=== PATIENT | female | born 1975 | race Hispanic/Latino ===

== ENCOUNTER 2018-04-11 06:58 | Inpatient (IN) | payer BC ==
[2018-04-11] MEDS ORDERED: ASPIRIN PO ONE (07:14)
[2018-04-11] MEDS ORDERED: ASPIRIN ONE (07:15)
[2018-04-11 07:54] LABS: Basophils # (Auto) 0.1 K/mm3 (0.0-0.1); Eosinophils # (Auto) 0.2 K/mm3 (0.0-0.4); Eosinophils % (Auto) 2.2 % (0.0-4.3); Hematocrit 41.9 % (30.3-42.9); Hemoglobin 14.2 gm/dl (10.1-14.3); Lymphocytes # (Auto) 2.6 K/mm3 (1.2-5.4); Lymphocytes % (Auto) 27.1 % (13.4-35.0); Mean Corpuscular HGB Conc 34 % (30-34); Mean Corpuscular Hemoglobin 29 pg (28-32); Mean Corpuscular Volume 86 fl (79-97); Monocytes # (Auto) 0.8 K/mm3 (0.0-0.8); Monocytes % (Auto) 7.9 % (0.0-7.3); Platelet Count 272 K/mm3 (140-440); Red Blood Count 4.89 M/mm3 (3.65-5.03); Red Cell Distribution Width 14.3 % (13.2-15.2)
[2018-04-11 08:08] LABS: BUN/Creatinine Ratio 21; Blood Urea Nitrogen 15 mg/dL (7-17); Hemolysis Index 14
--- NOTE | 2018-04-11 18:50 | XRay Report ---
FINAL REPORT PROCEDURE: XR CHEST 1V AP TECHNIQUE: Chest radiograph anteroposterior view. CPT 51593 HISTORY: chest pain COMPARISON: No prior studies are available for comparison. FINDINGS: Heart: Normal. Mediastinum/Vessels: Normal. Lungs/Pleural space: Normal. Bony thorax: No acute osseous abnormality. Life support devices: None. IMPRESSION: Negative exam..
[2018-04-11] MEDS ORDERED: ZOFRAN IV ONE ×2 (18:54→21:47)
[2018-04-11] MEDS ORDERED: SUBLIMAZE IV ONE ×2 (18:54→21:48)
[2018-04-11] MEDS ORDERED: BABY ASPIRIN PO ONE (18:55)
[2018-04-11] MEDS ORDERED: NORMODYNE IV ONE (18:55)
--- NOTE | 2018-04-11 18:55 | Emergency Department Report ---
HPI - General Chief Complaint: Chest Pain Time Seen by Provider: 04/11/18 16:15 - HPI HPI: The patient is a 42-year-old female with a history of morbid obesity, poorly controlled hypertension, and who presents for evaluation of chest pain and dyspnea. The patient reports chest pain on and off for the past week, midsternal, pressure-like in quality, constant and currently severe 10/10 in severity, radiating to the back. She also reports associated intermittent dyspnea currently resolved. She states that she has been compliant with antihypertensive regimen although blood pressure has been elevated at home as well. The patient denies trauma to the chest or back, fever, chills, cough, syncope, hemoptysis, unilateral leg swelling, oral contraceptive use, recent immobilization, history of DVT or PE, hx of recent cancer. ED Past Medical Hx - Past Medical History Previous Medical History?: Yes Hx Hypertension: Yes Additional medical history: heel spurs - Surgical History Past Surgical History?: Yes Hx Cholecystectomy: Yes Additional Surgical History: x 3. face surgery/reconstruction x 3 from [facility] - Social History Smoking Status: Never Smoker Substance Use Type: None - Medications Home Medications: Home Medications Medication Instructions Recorded Confirmed Last Taken Type Pantoprazole [Protonix TAB] 20 mg PO BID #60 tablet. 09/09/16 Unknown Rx Simvastatin [Zocor TAB] 10 mg PO QHS #30 tablet 09/09/16 Unknown Rx Hydrochlorothiazide [HCTZ] 25 mg PO DAILY #30 tablet 09/10/16 Unknown Rx Verapamil [Calan] 80 mg PO TID #90 tablet 09/10/16 Unknown Rx traMADol [Ultram] 50 mg PO Q6HR PRN #10 tablet 09/10/16 Unknown Rx ED Review of Systems ROS: Stated complaint: CP; SOB Other details as noted in HPI Constitutional: denies: fever ENT: denies: throat or neck pain Respiratory: denies: cough reports shortness of breath Cardiovascular: reports chest pain Endocrine: denies unexplained weight loss or gain Gastrointestinal: denies: abdominal pain, nausea Genitourinary: denies: dysuria Musculoskeletal: denies: leg swelling Skin: denies: rash Neurological: denies: headache Hematological/Lymphatic: denies: easy bleeding or easy bruising Psych: denies sadness or hopelessness Physical Exam - Physical Exam Vital Signs: Vital Signs 04/11/18 04/11/18 07:11 13:29 Temperature 98.5 F 98.4 F Pulse Rate 80 84 Respiratory 18 16 Rate Blood Pressure 185/105 181/98 O2 Sat by Pulse 98 99 Oximetry Physical Exam: General: well-nourished, well-developed, no acute distress, patient is morbidly obese Head: Normocephalic, atraumatic Eyes: normal sclera ENT: Mucous membranes are pink and moist Neck: trachea midline, neck supple, No neck stiffness, no cervical adenopathy Respiratory: Breath sounds equal bilaterally, no wheezing, rales, or rhonchi Cardio: S1 and S2 present, no murmurs, rubs, gallops, capillary refill is brisk Abdomen: Normoactive bowel sounds, soft abdomen, no rigidity, no guarding or rebound tenderness Musc: No pitting edema Skin: No rash Neuro: no facial drooping, normal speech Psych: Normal affect ED Course Vital Signs 04/11/18 04/11/18 07:11 13:29 Temperature 98.5 F 98.4 F Pulse Rate 80 84 Respiratory 18 16 Rate Blood Pressure 185/105 181/98 O2 Sat by Pulse 98 99 Oximetry ED Medical Decision Making - Lab Data Result diagrams: 04/11/18 07:28 04/11/18 07:28 - Medical Decision Making The patient was seen and examined by myself. The patient is placed on a monitoring and evaluation advisor and continuous pulse ox. On initial evaluation, the patient was found to be in no distress. EKG was negative for findings suggestive of acute cardiac infarct. The patient is given an aspirin and a nitroglycerin tablet. Labs and imaging are obtained. The patient is given IV fentanyl for her pain. Chest x-ray is negative for pneumothorax, focal consolidation, pulmonary vascular congestion, pleural effusion, or other obvious acute cardiopulmonary disease process. Lab results were non-revealing including negative troponin, WBC, hemoglobin, hematocrit, electrolytes, renal function. The patient was reevaluated and reported that their symptoms were improved. CT angiogram of the chest was obtained and was negative for pulmonary embolism or aortic dissection. As the patient has chest pain and risk factors for development of acute coronary event, and has not received a stress test in the past 2-3 years, the patient will be admitted for close cardiopulmonary monitoring, serial troponins, and evaluation by cardiology. Dr. Tan, the physician on-call for the hospitalists group was contacted. He presented to the emergency department and evaluated the patient. They agreed to admit the patient. The ED admit order was placed. The patient was admitted in guarded condition. Critical care attestation.: If time is entered above; I have spent that time in minutes in the direct care of this critically ill patient, excluding procedure time. ED Disposition Clinical Impression: Acute chest pain, Hypertensive urgency, Morbid obesity Disposition: OP ADMIT IP TO THIS HOSP Is pt being admited?: Yes Does the pt Need Aspirin: Yes Condition: Stable Instructions: Chest Pain (ED) Referrals: MORENITA ESCAMILLA MD [Primary Care Provider] - 3-5 Days Time of Disposition: 17:55
--- NOTE | 2018-04-11 20:44 | Cat Scan Report ---
FINAL REPORT PROCEDURE: CT ANGIO CHEST TECHNIQUE: Computerized tomographic angiography of the chest was performed during the IV injection of iodinated nonionic contrast including image processing. The image data was postprocessed using 2-dimensional multiplanar reformatted (MPR) and 3-dimensional (MIP and/or volume rendered) techniques. HISTORY: chest pain radiating to back COMPARISON: No prior studies are available for comparison. FINDINGS: Pulmonary outflow tract, right and left main pulmonary arteries and their proximal branches: Clear, no filling defects seen to suggest pulmonary embolus. Pericardium: No evidence of pericardial effusion. Thoracic aorta: No evidence of aneurysmal dilatation or dissection. Coronary arteries: Are unremarkable. Mediastinum and hilar regions: Nonspecific subcentimeter lymph nodes are visualized. No pathologically enlarged lymph nodes or masses are identified. Lung Neal: Clear Upper abdomen: Gallbladder is surgically absent. No acute abnormalities are seen in the upper abdomen. Other: No acute bone abnormalities are visualized. IMPRESSION: No evidence of pulmonary embolus. No acute abnormalities are identified. Prior cholecystectomy.
[2018-04-11] MEDS ORDERED: ZOFRAN ONE (21:46)
--- NOTE | 2018-04-11 23:58 | History and Physical Report ---
History of Present Illness Date of examination: 04/11/18 Date of admission: 04/11/18 22:01 Chief complaint: CC L Chest pain History of present illness: SENECA: The patient is a 42-year-old female with a history of morbid obesity, poorly controlled hypertension, and who presents for evaluation of chest pain and dyspnea. The patient reports chest pain on and off for the past week, midsternal, pressure-like in quality, constant and currently severe 10/10 in severity, radiating to the back. She also reports associated intermittent dyspnea currently resolved. She states that she has been compliant with antihypertensive regimen although blood pressure has been elevated at home as well. The patient denies trauma to the chest or back, fever, chills, cough, syncope, hemoptysis, unilateral leg swelling, oral contraceptive use, recent immobilization, history of DVT or PE, hx of recent cancer. Past Medical History Previous Medical History?: Yes Hx Hypertension: Yes Additional medical history: heel spurs - Surgical History Past Surgical History?: Yes Hx Cholecystectomy: Yes Additional Surgical History: x 3. face surgery/[facility]construction x 3 [facility] Social History Smoking Status: Never Smoker Substance Use Type: None - Medications Home Medications: Home Medications Medication Instructions Recorded Confirmed Last Taken Type Pantoprazole [Protonix TAB] 20 mg PO BID #60 tablet. 09/09/16 Unknown Rx Simvastatin [Zocor TAB] 10 mg PO QHS #30 tablet 09/09/16 Unknown Rx Hydrochlorothiazide [HCTZ] 25 mg PO DAILY #30 tablet 09/10/16 Unknown Rx Verapamil [Calan] 80 mg PO TID #90 tablet 09/10/16 Unknown Rx traMADol [Ultram] 50 mg PO Q6HR PRN #10 tablet 09/10/16 Unknown Rx Review of Systems ROS: Stated complaint: CP; SOB Other details as noted in HPI Constitutional: denies: fever ENT: denies: throat or neck pain Respiratory: denies: cough reports shortness of breath Cardiovascular: reports chest pain Endocrine: denies unexplained weight loss or gain Gastrointestinal: denies: abdominal pain, nausea Genitourinary: denies: dysuria Musculoskeletal: denies: leg swelling Skin: denies: rash Neurological: denies: headache Hematological/Lymphatic: denies: easy bleeding or easy bruising Psych: denies sadness or hopelessness Medications and Allergies Allergies Allergy/AdvReac Type Severity Reaction Status Date / Time latex Allergy Anaphylaxis Verified 07/20/15 08:59 Home Medications Medication Instructions Recorded Confirmed Last Taken Type Hydrochlorothiazide [HCTZ] 25 mg PO DAILY #30 tablet 09/10/16 04/12/18 1 Day Ago Rx ~04/11/18 Verapamil [Calan] 80 mg PO TID #90 tablet 09/10/16 04/12/18 1 Day Ago Rx ~04/11/18 Exam - Constitutional Vitals: Temp Pulse Resp BP Pulse Ox 98.4 F 72 23 171/98 99 04/11/18 13:29 04/11/18 23:16 04/11/18 23:16 04/11/18 23:16 04/11/18 13:29 General appearance: Present: no acute distress, well-nourished - EENT Eyes: Present: PERRL ENT: hearing intact, clear oral mucosa - Neck Neck: Present: supple, normal ROM - Respiratory Respiratory effort: normal Respiratory: bilateral: CTA - Cardiovascular Heart rate: 78 (Chest wall tenderness present) Rhythm: regular Heart Sounds: Present: S1 & S2. Absent: rub, click - Extremities Extremities: no ischemia, pulses intact, pulses symmetrical, No edema Peripheral Pulses: within normal limits - Abdominal General gastrointestinal: Present: soft, non-tender, non-distended, normal bowel sounds Female genitourinary: Present: normal - Integumentary Integumentary: Present: clear, warm, dry - Musculoskeletal Musculoskeletal: gait normal, strength equal bilaterally - Psychiatric Psychiatric: appropriate mood/affect, intact judgment & insight - Neurologic Neurologic: CNII-XII intact, moves all extremities - Allied Health Allied health notes reviewed: nursing, case management Results - Labs CBC & Chem 7: 04/11/18 07:28 04/11/18 07:28 Labs: Laboratory Last Values WBC 9.6 K/mm3 (4.5-11.0) 04/11/18 07:28 RBC 4.89 M/mm3 (3.65-5.03) 04/11/18 07:28 Hgb 14.2 gm/dl (10.1-14.3) 04/11/18 07:28 Hct 41.9 % (30.3-42.9) 04/11/18 07:28 MCV 86 fl (79-97) 04/11/18 07:28 MCH 29 pg (28-32) 04/11/18 07:28 MCHC 34 % (30-34) 04/11/18 07:28 RDW 14.3 % (13.2-15.2) 04/11/18 07:28 Plt Count 272 K/mm3 (140-440) 04/11/18 07:28 Lymph % (Auto) 27.1 % (13.4-35.0) 04/11/18 07:28 Preston % (Auto) 7.9 % (0.0-7.3) H 04/11/18 07:28 Eos % (Auto) 2.2 % (0.0-4.3) 04/11/18 07:28 Baso % (Auto) 1.0 % (0.0-1.8) 04/11/18 07:28 Lymph # 2.6 K/mm3 (1.2-5.4) 04/11/18 07:28 Preston # 0.8 K/mm3 (0.0-0.8) 04/11/18 07:28 Eos # 0.2 K/mm3 (0.0-0.4) 04/11/18 07:28 Baso # 0.1 K/mm3 (0.0-0.1) 04/11/18 07:28 Seg Neutrophils % 61.8 % (40.0-70.0) 04/11/18 07:28 Seg Neutrophils # 6.0 K/mm3 (1.8-7.7) 04/11/18 07:28 Sodium 141 mmol/L (137-145) 04/11/18 07:28 Potassium 3.8 mmol/L (3.6-5.0) 04/11/18 07:28 Chloride 100.1 mmol/L (98-107) 04/11/18 07:28 Carbon Dioxide 25 mmol/L (22-30) 04/11/18 07:28 Anion Gap 20 mmol/L 04/11/18 07:28 BUN 15 mg/dL (7-17) 04/11/18 07:28 Creatinine 0.7 mg/dL (0.7-1.2) 04/11/18 07:28 Estimated GFR > 60 ml/min 04/11/18 07:28 BUN/Creatinine Ratio 21 % 04/11/18 07:28 Glucose 142 mg/dL (65-100) H 04/11/18 07:28 Calcium 9.0 mg/dL (8.4-10.2) 04/11/18 07:28 Troponin T < 0.010 ng/mL (0.00-0.029) 04/11/18 13:24 HCG, Qual Negative (Negative) 04/11/18 07:28 Assessment and Plan Advance Directives: Yes (Full code) VTE prophylaxis?: Chemical Plan of care discussed with patient/family: Yes - Patient Problems (1) Acute chest pain Current Visit: Yes Status: Acute Plan to address problem: C/w costochondritis Serial Cardiac enzymes Lexiscan in AM NSAIDS at time of discharge (2) Morbid obesity Current Visit: Yes Status: Acute Plan to address problem: Counselled (3) GERD (gastroesophageal reflux disease) Current Visit: No Status: Chronic Qualifiers: Esophagitis presence: without esophagitis Qualified Code(s): K21.9 - Gastro -esophageal reflux disease without esophagitis Plan to address problem: Protonix (4) HTN (hypertension) Current Visit: Yes Status: Chronic Qualifiers: Hypertension type: essential hypertension Qualified Code(s): I10 - Essential (primary) hypertension (5) HLD (hyperlipidemia) Current Visit: Yes Status: Chronic Qualifiers: Hyperlipidemia type: mixed hyperlipidemia Qualified Code(s): E78.2 - Mixed hyperlipidemia Plan to address problem: Cont Statins (6) DVT prophylaxis Current Visit: No Status: Acute Plan to address problem: On Heparin
[2018-04-12] MEDS: PERCOCET 5/325 PO PRN ×2 (05:55→14:36)
[2018-04-12] MEDS ORDERED: LEXISCAN IV ONE (08:13)
[2018-04-12] MEDS ORDERED: K-DUR PO ONE (09:30)
[2018-04-12] MEDS ORDERED: HCTZ PO SCH (10:00)
[2018-04-12] MEDS ORDERED: PROTONIX PO SCH (10:00)
[2018-04-12] MEDS ORDERED: HEPARIN SUB-Q SCH (10:00)
[2018-04-12] MEDS ORDERED: PNEUMOVAX 23 IM ONE (12:00)
[2018-04-12] MEDS ORDERED: CALAN PO SCH (14:00)
--- NOTE | 2018-04-12 15:44 | Discharge Summary ---
Providers - Providers Date of Admission: 04/11/18 22:01 Date of discharge: 04/12/18 Attending physician: OPAL OTERO Primary care physician: MORENITA ESCAMILLA Hospitalization Condition: Good Pertinent studies: Cardiac isoenzymes negative #2 Lexiscan unremarkable. Hospital course: She presented with left sided flank versus chest pain. Workup negative stress test negative cardiac enzymes negative EKG unremarkable. Just normal sinus rhythm normal QT intervals. Patient stabilize blood pressure. Educated about obesity weight loss. Better dietary habits. He should be treated for pleuritis and costochondritis. Disposition: - TO HOME OR SELFCARE - Discharge Diagnoses (1) Acute chest pain Status: Acute Comment: Noncardiac in nature would treat as costochondritis pleuritis will start NSAIDs ibuprofen 800 mg twice a day for 7 days follow with primary care physician. (2) Morbid obesity Status: Acute Comment: Educated on better lifestyle habits exercise. Better dietary habits. (3) HLD (hyperlipidemia) Status: Chronic Qualifiers: Hyperlipidemia type: mixed hyperlipidemia Qualified Code(s): E78.2 - Mixed hyperlipidemia Comment: Resume statin Core Measure Documentation - Palliative Care Palliative Care/ Comfort Measures: Not Applicable - Core Measures Any of the following diagnoses?: none Exam - Constitutional Vitals: Temp Pulse Resp BP Pulse Ox 97.7 F 91 H 20 148/73 97 04/12/18 07:34 04/12/18 09:38 04/12/18 07:34 04/12/18 14:36 04/12/18 07:34 General appearance: Present: no acute distress, well-nourished - EENT Eyes: Present: PERRL ENT: hearing intact, clear oral mucosa - Neck Neck: Present: supple, normal ROM - Respiratory Respiratory effort: normal Respiratory: bilateral: CTA - Cardiovascular Heart Sounds: Present: S1 & S2. Absent: rub, click - Extremities Extremities: pulses symmetrical, No edema Peripheral Pulses: within normal limits - Abdominal General gastrointestinal: Present: soft, non-tender, non-distended, normal bowel sounds Female genitourinary: Present: normal - Integumentary Integumentary: Present: clear, warm, dry - Musculoskeletal Musculoskeletal: gait normal, strength equal bilaterally - Psychiatric Psychiatric: appropriate mood/affect, intact judgment & insight - Neurologic Neurologic: CNII-XII intact, moves all extremities Plan Activity: no restrictions Weight Bearing Status: Full Weight Bearing Diet: low fat Follow up with: MORENITA ESCAMILLA MD [Primary Care Provider] - 3-5 Days Prescriptions: AtorvaSTATin [Lipitor] 10 mg PO QHS #30 tablet Hydrochlorothiazide [HCTZ] 25 mg PO DAILY #30 tablet Verapamil [Calan] 80 mg PO TID #90 tablet
[2018-04-12 16:53] VITALS: BP 126/81
--- NOTE | 2018-04-12 21:59 | Treadmill Report ---
The patient is a 42-year-old white female with chest pain and generalized body aches of 2 weeks' duration, was admitted and IV Lexiscan nuclear imaging being performed for evaluation of her atypical chest pain. Baseline EKG showed sinus rhythm within normal limits. The patient was given 0.4 mg of IV Lexiscan and she tolerated it well. EKG showed minor nonspecific T-wave changes diffusely. The patient had resting myocardial perfusion images performed using technetium pyrophosphate. Post-stress myocardial perfusion images showed mild, medium-sized mid anterior defect, which is more or less unchanged in the resting images. Similarly, a mild mid inferior defect was noted post-stress images and this is also noted in the resting images suggesting these are artifactual, may be soft tissue attenuation defects. No reversible perfusion defects noted. Gated imaging performed post-stress showed normal wall motion and thickening with calculated ejection fraction of 64%. The patient's transient ischemic dilation ratio was found to be 1.06. Summed stress score was 11 and summed resting score was 13 with summed differential score was -2. FINAL IMPRESSION: 1. The patient tolerated IV Lexiscan without any significant side effect. 2. No EKG changes were noted to suggest ischemia. 3. Myocardial perfusion imaging showed no evidence of reversible defects. Fixed defects were noted, which probably are artifactual from soft tissue attenuation defect. Calculated ejection fraction of 64% was noted with normal wall thickening and motion. This is a low risk test result for future cardiac events. JOB# [id number] SHELLY/MAIRA MCNALLY
== END 2018-04-12 18:35 | disposition home or self-care (01) | DRG 194 ==
LOC: ED 06:58 → 4A 22:01
PROVIDERS: ADMIT Internal Medicine; ATTEND Internal Medicine
PROC: 3E0234Z Introduction of Serum, Toxoid and Vaccine into Muscle, Percutaneous Approach (ICD-10-PCS; principal; 2018-04-12)
DX: R09.1 Pleurisy (principal); Z68.43 Body mass index [BMI] 50.0-59.9, adult; I16.0 Hypertensive urgency; E66.01 Morbid (severe) obesity due to excess calories; M94.0 Chondrocostal junction syndrome [Tietze]; E78.5 Hyperlipidemia, unspecified; K21.9 Gastro-esophageal reflux disease without esophagitis; I10 Essential (primary) hypertension; Z90.49 Acquired absence of other specified parts of digestive tract; Z79.899 Other long term (current) drug therapy; Z91.040 Latex allergy status; Z71.3 Dietary counseling and surveillance; Z23 Encounter for immunization
CPT/HCPCS: 36415; 71045; 71275; 78452; 80048; 84484; 84703; 85025; 90732; 93005; 93010; 93017; A9502; J1644; J2405; J2785; J3010; Q9967